=== PATIENT | female | born 1995 | race Caucasian/White ===

== ENCOUNTER 2021-08-11 04:01 | Day surgery (SDC) | payer OTHER ==
[2021-08-05 15:28] VITALS: BMI 19.7
[2021-08-11] MEDS ORDERED: SUCCINYLCHOLINE CHLORIDE 200 MG/10 ML SYRINGE ONE (07:21)
[2021-08-11] MEDS ORDERED: FENTANYL CITRATE/PF 50 MCG/ML VIAL ONE ×4 (07:21→10:02)
[2021-08-11] MEDS ORDERED: PROPOFOL 20 ML ONE (07:21)
[2021-08-11] MEDS ORDERED: DEXAMETHASONE SOD PHOSPHATE 4 MG/1 ML VIAL ONE (07:21)
[2021-08-11] MEDS ORDERED: MIDAZOLAM HCL 2 MG/2 ML SINGLE DOSE VIAL ONE (07:21)
[2021-08-11] MEDS ORDERED: LIDOCAINE HCL/PF 2% SDV 5ML VIAL ONE (07:21)
[2021-08-11] MEDS ORDERED: LIDOCAINE 1%/EPI 1:100000 (20 ML MULTI DOSE VIAL) ONE (07:24)
[2021-08-11] MEDS ORDERED: EPINEPHrine/PF 1 MG/1 ML (1:1,000) AMPULE ONE (07:24)
[2021-08-11] MEDS ORDERED: SODIUM CHLORIDE 0.9% P/F 10 ML VIAL IJ ONE (07:47)
[2021-08-11] MEDS ORDERED: ROCURONIUM BROMIDE 50 MG/5 ML SYRINGE ONE (08:01)
[2021-08-11] MEDS ORDERED: ceFAZolin SODIUM 1 GM VIAL ONE (08:07)
[2021-08-11] MEDS ORDERED: ceFAZolin SODIUM 1 GM VIAL IVPB ONE (08:09)
[2021-08-11] MEDS ORDERED: DESFLURANE GAS 240 ML BOTTLE IH ONE (08:14)
[2021-08-11] MEDS ORDERED: OXYMETAZOLINE 0.05% NASAL SOLUTION 15 ML BOTTLE NS ONE (09:00)
[2021-08-11] MEDS ORDERED: LIDOCAINE 1%/EPI 1:100000 (20 ML MULTI DOSE VIAL) IJ ONE (09:00)
[2021-08-11] MEDS ORDERED: NEOSTIGMINE METHYLSULFATE 0.5 MG/ML - 10 ML MDV ONE (09:33)
[2021-08-11] MEDS ORDERED: GLYCOPYRROLATE 0.2 MG/1 ML VIAL ONE (09:33)
[2021-08-11] MEDS: FENTANYL CITRATE/PF 50 MCG/ML VIAL ONE ×2 (10:02→10:32)
[2021-08-11] MEDS ORDERED: oxyCODONE HCL 5 MG TABLET PO PRN (10:47)
[2021-08-11] MEDS ORDERED: ONDANSETRON 4 MG/2 ML VIAL IVPUSH PRN (10:47)
[2021-08-11] MEDS ORDERED: LACTATED RINGERS SOLUTION 1,000 ML IV SCH (11:00)
[2021-08-11] MEDS ORDERED: oxyCODONE HCL 5 MG TABLET ONE ×2 (12:29→12:37)
[2021-08-11] MEDS ORDERED: ONDANSETRON *ODT* 4 MG TABLET ONE (12:29)
[2021-08-11 12:43] VITALS: TEMP 98.2
[2021-08-11 12:45] VITALS: BP 132/84; PULSE 67
== END 2021-08-11 13:15 | disposition home or self-care (01) ==
LOC: JASU-SURG 04:01
PROVIDERS: ATTEND Otolaryngology
PROC: 09BV8ZZ Excision of Left Ethmoid Sinus, Via Natural or Artificial Opening Endoscopic (ICD-10-PCS; 2021-08-11)
PROC: 09TL8ZZ Resection of Nasal Turbinate, Via Natural or Artificial Opening Endoscopic (ICD-10-PCS; 2021-08-11)
PROC: 099R8ZZ Drainage of Left Maxillary Sinus, Via Natural or Artificial Opening Endoscopic (ICD-10-PCS; principal; 2021-08-11 08:00)
DX: J32.8 Other chronic sinusitis (principal); J34.89 Other specified disorders of nose and nasal sinuses; J34.3 Hypertrophy of nasal turbinates; R09.81 Nasal congestion
CPT/HCPCS: 81025; 87070; 87205; 88302-TC; 88311-TC; 94760; Q0162